=== PATIENT | female | born 1990 | race Asian ===

== ENCOUNTER 2022-09-18 16:50 | Outpatient (CLI) | payer SELFPAY ==
[~2022-09-18] VITALS: Ht 162.6 cm; Wt 68.6 kg
[2022-09-18 17:15] VITALS: BP 120/74
--- NOTE | 2022-09-19 09:55 | Physician Query-Final Dx ---
ROME09/19/22 0955: Clinic Account Progress/Dx Physician Query: Please give diagnosis Please include # weeks gestation Date of Service Sep 18, 2022 at 16:50 ANANDA JOYCE MD 09/19/22 1841: Clinic Account Progress/Dx DIAGNOSIS: Diagnosis Round ligament pain in third trimester 37 weeks gestation ,OctSep 19, 2022 09:55 ANANDA JOYCE MD Sep 19, 2022 18:41
== END 2022-09-18 18:15 ==
LOC: LDRP 16:50 → WSo 16:50
PROVIDERS: ATTEND Family Medicine
DX: O26.893 Other specified pregnancy related conditions, third trimester (principal); R10.2 Pelvic and perineal pain; Z3A.37 37 weeks gestation of pregnancy
CPT/HCPCS: 99213

== ENCOUNTER 2022-09-26 14:46 | Inpatient (IN) | payer SELFPAY ==
[~2022-09-26] VITALS: Ht 162.6 cm; Wt 70.1 kg
[2022-09-26] VITALS (13 sets, daily range): BP systolic 115–136; BP diastolic 70–90
--- NOTE | 2022-09-26 16:21 | Diagnostic Imaging Report ---
INDICATION: Threatened miscarriage. EXAMINATION: Limited OB ultrasound. FINDINGS: There is a single living intrauterine in cephalic presentation. Placenta is anterior, not low. There is no abruption or previa. Amniotic fluid volume appeared normal. Cervical length is 4.7 cm. heart rate was 152 BPM. IMPRESSION: Unremarkable limited OB ultrasound. Dictated by: Dictated on workstation # [id number]
[2022-09-26 18:41] LABS: BASOPHILS % (AUTO) 0 % (0-10); EOSINOPHILS # (AUTO) 0.1 10^3/uL (0.0-0.3); EOSINOPHILS % (AUTO) 1 % (0-10); HEMATOCRIT 36 % (35-52); HEMOGLOBIN 11.5 g/dL (11.5-16.0); LYMPHOCYTES # (AUTO) 1.6 10^3/uL (1.0-4.0); LYMPHOCYTES % (AUTO) 21 % (12-44); MEAN CORPUSCULAR HEMOGLOBIN 27 pg (25-34); MEAN CORPUSCULAR HGB CONC 32 g/dL (32-36); MEAN CORPUSCULAR VOLUME 85 fL (80-99); MONOCYTES # (AUTO) 0.4 10^3/uL (0.0-1.0); MONOCYTES % (AUTO) 6 % (0-12); NEUTROPHILS # (AUTO) 5.5 10^3/uL (1.8-7.8); NEUTROPHILS % (AUTO) 71 % (42-75); PLATELET COUNT 229 10^3/uL (130-400); WHITE BLOOD COUNT 7.8 10^3/uL (4.3-11.0)
[2022-09-26 18:47] LABS: ALBUMIN 3.5 GM/DL (3.2-4.5)
[2022-09-26 18:49] LABS: CALCIUM 9.2 MG/DL (8.5-10.1)
[2022-09-26 18:50] LABS: TOTAL PROTEIN 7.5 GM/DL (6.4-8.2)
[2022-09-26 18:52] LABS: BILIRUBIN,TOTAL 0.2 MG/DL (0.1-1.0)
[2022-09-26 18:53] LABS: CREATININE SERUM 0.61 MG/DL (0.60-1.30)
[2022-09-26 18:56] LABS: URIC ACID 1.6 MG/DL (2.6-7.2)
[2022-09-26] MEDS: D5 LR IV SOLUTION 1,000 ML IV SCH (19:33)
--- NOTE | 2022-09-26 20:42 | History & Physical-OB/GYN ---
DUSTIN NUGENT 09/26/222041: OB - Chief Complaint & HPI Date/Time Date of Admission: Date of Admission: September 26, 2022 Date seen by a Provider: Sep 26, 2022 Time Seen by a Provider: 08:15 Chief Complaint/History OB-Reason for Admission/Chief: Obstetrical Complication (bleeding) Hx : 1 Hx Para: 0 Expected Date of Delivery: Oct 08, 2022 Gestational Age in Weeks: 38 Gestational Age in Days: 2 Indication for induction: medical complication (vaginal bleeding) Allergies and Home Medications Allergies Coded Allergies: No Known Drug Allergies (Unverified , 09/26/22) Patient Home Medication List Betamethasone Dipropionate (Betamethasone Dipropionate) 0.05 % Cream..g., 15 GM TP BID, (Reported) Entered as Reported by: ANANDA JOYCE on 09/27/22525 Last Action: Reviewed Cetirizine HCl (Cetirizine HCl) 10 Mg Tablet, 10 MG PO DAILY, (Reported) Entered as Reported by: ANANDA JOYCE on 09/27/22518 Last Action: Reviewed Famotidine (Acid Receivable Manager (FAMOTIDINE)) 20 Mg Tablet, 20 MG PO DAILY, (Reported) Entered as Reported by: ANANDA JOYCE on 09/27/22518 Last Action: Reviewed Mupirocin (Mupirocin) 2 % Oin.pf.lalito, 1 GM TP TID, (Reported) Entered as Reported by: ANANDA JOYCE on 09/27/22525 Last Action: Reviewed OB - History Hx of Present Care: Yes Ultrasounds: Other (See below for details.) Abnormal Ultrasound Findings: survey at 22w3d was limited without obvious abnormality but US did show possible borderline low position of placenta. Follow up US at 26w5d showed normal structures and grade 1 anteriorly located placenta. Obstetrical Complications: Other (suspected prurigo of ) Medical Complications: None Information Induced Hypertension: No Maternal Gestational Diabetes: No Hemorrhage: No Obstetrical History Hx : 1 Hx Para: 0 Hx Termination: No Hx Total # of Abortions (Spona: 0 Hx Multiple Gestation: No Hx Ectopic : No Hx Stillbirth: No Hx Complication: No Hx Induced Hypertens: No Hx Maternal Gestational Diabet: No Hx Hemorrhage: No Delivery History Hx Dystocia: No Hx Forceps Assisted Delivery: No Hx Vacuum Extraction Assisted: No Hx Placenta Abnormality: No Hx Distress: No Hx Large For Gestational Age I: No Hx Small for Gestational Age I: No Hx Section: No Hx Vaginal Delivery Post C-Sec: No Hx Blood Disorders: No Adverse Rxn to Tranfusion: No Patient Past Medical History PCOS Allergic rhinitis Social History/Family History Alcohol Use: Denies Use Recreational Drug Use: No Smoking Cessation: Never smoker 2nd Hand Smoke Exposure: No Immunizations Influenza Vaccine Up-to-Date: Yes; Up-to-Date Tetanus Booster (TDap): Less than 5yrs Rubella: immune RPR/VDRL: Negative GBS Status: Negative HBsAG: Negative OB - Admission Exam Physical Exam Vitals: Vital Signs 09/26/22 09/26/22 15:16 18:03 Temp 36.8 Pulse 98 Resp 20 B/P (MAP) 136/90 (105) Pulse Ox 98 O2 Delivery Room Air Heart: Rhythm Normal Lungs: Clear Abdomen: Gravid (Manual exam reveals cephalic presentation, estimation of weight 3200 grams.) Extremities: Normal Cervical Dilatation: other (3.5) Effacement: Other (80%) Station: -2 Membranes: Intact Heart Rate: 140's Accelerations: Accelerations Present Decelerations: No Decelerations Short Term Variability: Present 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: Average (6-25) Contractions on Admission: < 5 Minutes Apart Date/Time Contractions Began;: 09/23/2022 1430 Frequency of Contractions: 1-2/10 minutes Labs Laboratory Tests Test 09/26/22 18:20 Range/Units White Blood Count 7.8 4.3-11.0 10^3/uL Red Blood Count 4.25 3.80-5.11 10^6/uL Hemoglobin 11.5 11.5-16.0 g/dL Hematocrit 36 35-52 % Mean Corpuscular Volume 85 80-99 fL Mean Corpuscular Hemoglobin 27 25-34 pg Mean Corpuscular Hemoglobin Concent 32 32-36 g/dL Red Cell Distribution Width 15.3 H 10.0-14.5 % Platelet Count 229 130-400 10^3/uL Mean Platelet Volume 11.0 9.0-12.2 fL Immature Granulocyte % (Auto) 1 % Neutrophils (%) (Auto) 71 42-75 % Lymphocytes (%) (Auto) 21 12-44 % Monocytes (%) (Auto) 6 0-12 % Eosinophils (%) (Auto) 1 0-10 % Basophils (%) (Auto) 0 0-10 % Neutrophils # (Auto) 5.5 1.8-7.8 10^3/uL Lymphocytes # (Auto) 1.6 1.0-4.0 10^3/uL Monocytes # (Auto) 0.4 0.0-1.0 10^3/uL Eosinophils # (Auto) 0.1 0.0-0.3 10^3/uL Basophils # (Auto) 0.0 0.0-0.1 10^3/uL Immature Granulocyte # (Auto) 0.1 0.0-0.1 10^3/uL Sodium Level 136 135-145 MMOL/L Potassium Level 4.0 3.6-5.0 MMOL/L Chloride Level 106 98-107 MMOL/L Carbon Dioxide Level 17 L 21-32 MMOL/L Anion Gap 13 5-14 MMOL/L Blood Urea Nitrogen 11 7-18 MG/DL Creatinine 0.61 0.60-1.30 MG/DL Estimat Glomerular Filtration Rate 123 BUN/Creatinine Ratio 18 Glucose Level 90 70-105 MG/DL Uric Acid 1.6 L 2.6-7.2 MG/DL Calcium Level 9.2 8.5-10.1 MG/DL Corrected Calcium 9.6 8.5-10.1 MG/DL Total Bilirubin 0.2 0.1-1.0 MG/DL Aspartate Amino Transf (AST/SGOT) 18 5-34 U/L Alanine Aminotransferase (ALT/SGPT) 10 0-55 U/L Alkaline Phosphatase 224 H 40-136 U/L Total Protein 7.5 6.4-8.2 GM/DL Albumin 3.5 3.2-4.5 GM/DL OB - Assessment/Plan/Diagnosis Assessment Assessment: vaginal bleeding Admission Dx Vaginal bleeding Admission Status: Inpatient Order (span 2 midnights) Reason for Inpatient Admission: Vaginal bleeding, induction of labor Plan Plan: Induction Induction Method: per Pitocin Protocol Problems: (1) Vaginal bleeding during Assessment & Plan: Patient had active bright red vaginal bleeding after cervix check in clinic. She had not had bleeding prior and was not having pain. She had some sporadic contractions before presentation to the clinic. Cervix was dilated to 3cm, effaced 25%. She was sent to the hospital for observation and continuous monitoring was initiated. She was found to be having contractions every 3- 5 minutes which progressed to every 2 minutes. heart tones at that time showed baseline 140 with minimal variability, no acceleration or decelerations. Fluids were started and contractions spaced out to every 5-6 minutes with heart tones recovering to baseline 140 with moderate variability, accelerations present, no decelerations. Patient had bleeding again after cervix check in the hospital. Repeat US ordered to assess for causes of bleeding, did not show evidence of placental abruption or previa, placenta was not low. Her cervix is 3.5cm, 80%, -2 at this time. She is now having pain only with contractions. No active bleeding. Discussed the situation with the patient and FOB and they would like to proceed with induction via pitocin protocol. Patient desires epidural. ANANDA JOYCE MD 09/27/22515: Allergies and Home Medications Allergies Coded Allergies: No Known Drug Allergies (Unverified , 09/26/22) Patient Home Medication List Home Medication List Reviewed: Yes Betamethasone Dipropionate (Betamethasone Dipropionate) 0.05 % Cream..g., 15 GM TP BID, (Reported) Entered as Reported by: ANANDA JOYCE on 09/27/22525 Last Action: Reviewed Cetirizine HCl (Cetirizine HCl) 10 Mg Tablet, 10 MG PO DAILY, (Reported) Entered as Reported by: ANANDA JOYCE on 09/27/22518 Last Action: Reviewed Famotidine (Acid Receivable Manager (FAMOTIDINE)) 20 Mg Tablet, 20 MG PO DAILY, (Reported) Entered as Reported by: ANANDA JOYCE on 09/27/22518 Last Action: Reviewed Mupirocin (Mupirocin) 2 % Oin.pf.lalito, 1 GM TP TID, (Reported) Entered as Reported by: ANANDA JOYCE on 09/27/22525 Last Action: Reviewed OB - Assessment/Plan/Diagnosis Plan Problems: (1) Vaginal bleeding during (2) Placental abruption Assessment & Plan: Given recurrent bright red bleeding of small to moderate amount and frequent contractions, suspect partial placental abruption and therefore recommended augmentation of her early labor. Qualifiers: Qualified Codes: O45.93 - Premature separation of placenta, unspecified, third trimester Supervisory-Addendum Brief Verification & Attestation Participated in pt care: history, MDM, physical Personally performed: exam, history, MDM, supervision of care Care discussed with: Medical Student Procedures: n/a I personally saw and examined patient and did my own history which confirmed that documented by the medical student. See my assessment and plan. DUSTIN NUGENT Sep 26, 2022 20:42 ANANDA JOYCE MD Sep 27, 2022 05:16
[2022-09-26] MEDS ORDERED: MINERAL OIL 30 ML UDC TOP PRN (20:45)
[2022-09-26] MEDS ORDERED: OXYTOCIN PRE-MIX DRIP 500 ML IV SCH (20:45)
[2022-09-26] MEDS ORDERED: D5 LR IV SOLUTION 1,000 ML IV SCH (20:45)
[2022-09-26] MEDS ORDERED: OXYTOCIN PRE-MIX DRIP 500 ML IV ONE (21:16)
[2022-09-26] MEDS ORDERED: CATHETER FLUSH 10 ML SYR IV SCH (22:00)
[2022-09-27] VITALS (46 sets, daily range): BP systolic 11–156; BP diastolic 53–87
[2022-09-27] MEDS ORDERED: fentaNYL 2 mcg/ml BUPIVA 0.125 100 ML ONE (01:11)
[2022-09-27] MEDS ORDERED: fentaNYL INJ 100 MCG/2 ML AMP ONE (01:49)
[2022-09-27] MEDS ORDERED: BUPIVACAINE 0.25% 30 ML (SENSORCAINE) VIAL ONE (01:49)
[2022-09-27] MEDS ORDERED: fentaNYL INJ 100 MCG/2 ML AMP INJ ONE (02:30)
[2022-09-27] MEDS ORDERED: LACTATED RINGERS 1,000 ML IV ONE ×2 (02:30)
[2022-09-27] MEDS ORDERED: ONDANSETRON 4 MG/2 ML (SDV) Z0FRAN IV PRN (02:30)
[2022-09-27] MEDS ORDERED: fentaNYL 2 mcg/ml BUPIVA 0.125 100 ML EPI SCH (02:30)
[2022-09-27] MEDS ORDERED: NALOXONE 0.4 MG/ML 1 ML (NARCAN) VIAL IV PRN (02:30)
[2022-09-27] MEDS: D5 LR IV SOLUTION 1,000 ML IV SCH (03:22)
[2022-09-27] MEDS ORDERED: FAMO20TA3 PO (05:19)
[2022-09-27] MEDS ORDERED: CETI10TA17 PO (05:19)
[2022-09-27] MEDS ORDERED: MUPI1OIN6 TP (05:26)
[2022-09-27] MEDS ORDERED: BETA15CR4 TP (05:26)
[2022-09-27] MEDS: OXYTOCIN PRE-MIX DRIP 500 ML IV SCH ×2 (10:38→12:35)
--- NOTE | 2022-09-27 10:38 | OB Labor & Delivery Record ---
ANA CRISTINA SORIA 09/27/22 1038: Vag Delivery Note Vag Delivery Note Date of Delivery: 09/27/22 Preoperative Diagnosis: Ethan Tapia is a (32 y/o /Para 1 / 0, Gestational Age (wks)38with 2 days Postoperative Diagnosis: Same Surgeon: Ananda Joyce MD Receiving Checker: Ana Cristina Soria Anesthesia: epidural Delivery Type: vaginal delivery Findings: Viable male infant, apgars 8,9, weight 2948 grams Lacerations: 2nd degree midline Intact placenta with 3 vessel cord. No nuchal cord, body cord or shoulder dystocia Estimated Blood Loss: 450 ml Complications: None Condition: Stable Description of Procedure: The patient is a 32 year old female who presented with vaginal bleeding and contractions. She was admitted and informed consent was obtained. Her labor course was remarkable for vaginal bleeding She progressed to complete dilatation and began to push. She was then set up for delivery. The 's head was delivered atraumatically in the JUAREZ position. The shoulders and remainder of the infant's body were then delivered without difficulty. Upon delivery, the was placed on mothers abdomen and the mouth and nares were bulb suctioned. The cord was doubly clamped and cut and the was handed off to the pediatric staff. An intact placenta with 3-vessel cord delivered via Lorraine and there was found to be minimal bleeding.~ Vigorous fundal massage was performed and the fundus was found to be firm. IV oxytocin was given. Examination of the vagina and perineum revealed a midline 2nd degree laceration repaired in the usual fashion with 3-0 vicryl suture. Following the repair, sponge, instrument and needle counts were correct. Mom and baby were both in stable condition in the labor suite. Vitals - Labs Vital Signs - I&O Vital Signs Date Time Temp Pulse Resp B/P (MAP) Pulse Ox O2 Delivery O2 Flow Rate FiO2 09/27/22 09:00 113 22 116/68 (84) 09/27/22 08:50 36.6 09/27/22 08:10 37.0 102 20 101/59 (73) 09/27/22 07:15 37.0 09/27/22 07:00 108 18 122/74 (90) Room Air 09/27/22 06:30 117 18 139/63 (88) 98 Room Air 09/27/22 06:15 93 18 115/54 (74) 98 Room Air 09/27/22 06:00 112 18 129/79 (96) 100 Room Air 09/27/22 05:45 110 18 126/86 (99) 100 Room Air 09/27/22 05:30 95 18 130/87 (101) 99 Room Air 09/27/22 05:15 93 18 124/77 (93) 99 Room Air 09/27/22 05:00 105 18 124/82 (96) 99 Room Air 09/27/22 04:45 90 18 119/82 (94) 99 Room Air 09/27/22 04:30 76 18 119/69 (86) 97 Room Air 09/27/22 04:15 87 18 121/72 (88) 98 Room Air 09/27/22 04:00 80 18 117/69 (85) 98 Room Air 09/27/22 03:45 78 18 112/65 (81) 98 Room Air 09/27/22 03:30 78 18 123/81 (95) 98 Room Air 09/27/22 03:15 83 18 128/79 (95) 98 Room Air 09/27/22 03:00 Room Air 09/27/22 02:50 98 18 115/69 (84) 98 Room Air 09/27/22 02:45 90 18 116/69 (85) 97 Room Air 09/27/22 02:40 80 18 119/67 (84) 97 Room Air 09/27/22 02:35 86 98 Room Air 09/27/22 02:30 92 18 119/65 (83) 97 Room Air 09/27/22 02:25 95 18 115/60 (78) 98 Room Air 09/27/22 02:20 96 18 115/62 (79) 98 Room Air 09/27/22 02:15 36.5 94 18 123/76 (92) Room Air 09/27/22 02:10 99 18 118/72 (87) 98 Room Air 09/27/22 02:05 89 18 131/80 (97) 98 Room Air 09/27/22 02:00 107 18 136/85 (102) 98 Room Air 09/27/22 01:45 09/27/22 01:30 88 18 130/77 (94) Room Air 09/27/22 01:15 89 18 132/68 (89) Room Air 09/27/22 01:00 84 18 156/77 (103) Room Air 09/27/22 00:45 86 18 123/72 (89) Room Air 09/27/22 00:30 77 18 130/73 (92) Room Air 09/27/22 00:15 78 18 120/75 (90) Room Air 09/27/22 00:00 72 18 120/75 (90) Room Air 09/26/22 23:45 76 18 118/74 (89) Room Air 09/26/22 23:30 78 18 115/76 (89) Room Air 09/26/22 23:15 85 18 120/77 (91) Room Air 09/26/22 23:00 86 18 117/75 (89) Room Air 09/26/22 22:45 89 18 122/78 (93) Room Air 09/26/22 22:30 94 18 132/70 (90) Room Air 09/26/22 22:15 85 18 127/71 (89) Room Air 09/26/22 22:00 85 18 128/73 (91) Room Air 09/26/22 21:45 85 18 124/80 (95) Room Air 09/26/22 21:30 36.2 90 18 124/81 (95) Room Air 09/26/22 20:30 36.6 98 18 98 Room Air 09/26/22 18:03 98 20 136/90 (105) 98 Room Air 09/26/22 15:16 36.8 82 20 123/82 98 Room Air Labs Laboratory Tests 09/26/22 18:20: White Blood Count 7.8, Red Blood Count 4.25, Hemoglobin 11.5, Hematocrit 36, Mean Corpuscular Volume 85, Mean Corpuscular Hemoglobin 27, Mean Corpuscular Hemoglobin Concent 32, Red Cell Distribution Width 15.3H, Platelet Count 229, Mean Platelet Volume 11.0, Immature Granulocyte % (Auto) 1, Neutrophils (%) (Auto) 71, Lymphocytes (%) (Auto) 21, Monocytes (%) (Auto) 6, Eosinophils (%) (Auto) 1, Basophils (%) (Auto) 0, Neutrophils # (Auto) 5.5, Lymphocytes # (Auto) 1.6, Monocytes # (Auto) 0.4, Eosinophils # (Auto) 0.1, Basophils # (Auto) 0.0, Immature Granulocyte # (Auto) 0.1, Sodium Level 136, Potassium Level 4.0, Chloride Level 106, Carbon Dioxide Level 17L, Anion Gap 13, Blood Urea Nitrogen 11, Creatinine 0.61, Estimat Glomerular Filtration Rate 123, BUN/Creatinine Ratio 18, Glucose Level 90, Uric Acid 1.6L, Calcium Level 9.2, Corrected Calcium 9.6, Total Bilirubin 0.2, Aspartate Amino Transf (AST/SGOT) 18, Alanine Aminotransferase (ALT/SGPT) 10, Alkaline Phosphatase 224H, Total Protein 7.5, Albumin 3.5 09/26/22 20:20: Urine Protein 18H, Urine Creatinine 36, Urine Protein/Creatinine Ratio 0.50 ANANDA JOYCE MD 09/27/22 1316: Supervisory-Addendum Brief Supervisory Addendum Verification and Attestation of Medical Student E/M Service A medical student performed and documented this service in my presence. I reviewed and verified all information documented by the medical student and made modifications to such information, when appropriate. I personally performed the physical exam and medical decision making. Ananda Joyce, Sep 27, 2022,13:16 ANA CRISTINA SORIA Sep 27, 2022 10:38 ANANDA JOYCE MD Sep 27, 2022 13:16
[2022-09-27] MEDS ORDERED: TETANUS,DIPTH,PERTUSS P/F (BOOSTRIX) 0.5 ML VIAL IM ONE (10:45)
[2022-09-27] MEDS ORDERED: BENZOCAINE/MENTHOL (DERMOPLAST) 56 ML CAN TP PRN (10:45)
[2022-09-27] MEDS ORDERED: CATHETER FLUSH 10 ML SYR IV SCH (14:00)
[2022-09-27] MEDS: IBUPROFEN 600 MG (MOTRIN) TAB PO PRN ×2 (14:08→21:19)
[2022-09-27] MEDS: WITCH HAZEL(TUCKS) 40 EA JAR TOP PRN (14:09)
--- NOTE | 2022-09-27 14:59 | Anesthesia-Regional Post-Op ---
Regional Patient Condition Mental Status: Alert, Oriented x3 Circulation: Same as Pre-Op Headache: Absent Sensation: Full Recovery Motor Block: Absent Post Op Complications Complications None Follow Up Care/Instructions Patient Instructions None needed. Anesthesia/Patient Condition Patient is doing well, no complaints, stable vital signs, no apparent adverse anesthesia problems. No complications reported per nursing. NETTA MEDELLIN CRNA Sep 27, 2022 14:59
[2022-09-27] MEDS: DOCUSATE SODIUM 100 MG (COLACE) CAP PO SCH (21:19)
[2022-09-28] VITALS: BP 110/66
[2022-09-28 03:10] VITALS: BP 114/65
[2022-09-28] MEDS: IBUPROFEN 600 MG (MOTRIN) TAB PO PRN ×4 (03:10→22:24)
[2022-09-28 06:46] LABS: BASOPHILS % (AUTO) 0 % (0-10); EOSINOPHILS # (AUTO) 0.1 10^3/uL (0.0-0.3); EOSINOPHILS % (AUTO) 1 % (0-10); HEMATOCRIT 22 % (35-52); LYMPHOCYTES # (AUTO) 1.9 10^3/uL (1.0-4.0); LYMPHOCYTES % (AUTO) 15 % (12-44); MEAN CORPUSCULAR HEMOGLOBIN 27 pg (25-34); MEAN CORPUSCULAR HGB CONC 32 g/dL (32-36); MEAN CORPUSCULAR VOLUME 85 fL (80-99); MEAN PLATELET VOLUME 10.7 fL (9.0-12.2); MONOCYTES # (AUTO) 0.7 10^3/uL (0.0-1.0); MONOCYTES % (AUTO) 5 % (0-12); NEUTROPHILS # (AUTO) 10.4 10^3/uL (1.8-7.8); NEUTROPHILS % (AUTO) 79 % (42-75); PLATELET COUNT 175 10^3/uL (130-400); WHITE BLOOD COUNT 13.2 10^3/uL (4.3-11.0)
[2022-09-28 06:49] LABS: HEMOGLOBIN 6.9 g/dL (11.5-16.0)
[2022-09-28 10:00] VITALS: BP 115/63
[2022-09-28] MEDS: FERROUS SULF 325 MG (IRON) TAB PO SCH ×2 (10:11→17:42)
[2022-09-28] MEDS: DOCUSATE SODIUM 100 MG (COLACE) CAP PO SCH ×2 (10:11→22:24)
[2022-09-28 13:00] VITALS: BP 111/55
[2022-09-28] MEDS ORDERED: IRON SUCROSE 200 MG/10 ML (VENOFER) VIAL IV NR (13:15)
--- NOTE | 2022-09-28 13:21 | Postpartum Progress Note ---
Note Note Day # 1 Subjective: Patient is without complaints. Ambulating, voiding. Tolerating a regular diet without nausea or vomiting. Normal lochia. Pain is well controlled with oral pain medications. States that she is having some dizziness when getting up but not everytime. Desires to breast feed Objective: Physical Exam: General - Alert and oriented, no apparent distress Abdomen - Soft, appropriately tender to palpation, non-distended, fundus firm at umbilicus Extremities - no edema, negative Joyce's bilaterally Assessment: 32 yo G1 now P1 @ 38.2 wga, post- day # 1, status post spontaneous vaginal delivery. Recovering well, hemodynamically stable Anemia of acute blood loss Plan: Routine care. Encourage breast feeding. Encourage ambulation. Ferrous sulfate supplementation, Venofer ordered x 1 Plan for discharge tomorrow with lilly Bray Vitals - Labs Vital Signs - I&O Vital Signs Date Time Temp Pulse Resp B/P (MAP) Pulse Ox O2 Delivery O2 Flow Rate FiO2 09/28/22 10:00 36.7 102 18 115/63 (80) 98 Room Air 09/28/22 03:10 36.1 91 18 114/65 (81) 97 Room Air 09/28/22 00:00 36.2 98 18 110/66 (81) 96 Room Air 09/27/22 21:19 36.2 96 18 110/64 (79) 97 Room Air 09/27/22 16:40 36.7 107 18 107/60 (76) 96 Room Air I & O 09/28/22 07:00 Intake Total 2100 ml Balance 2100 ml Labs Laboratory Tests 09/28/22 06:10: White Blood Count 13.2H, Red Blood Count 2.54L, Hemoglobin 6.9#*L, Hematocrit 22L, Mean Corpuscular Volume 85, Mean Corpuscular Hemoglobin 27, Mean Corpuscular Hemoglobin Concent 32, Red Cell Distribution Width 15.6H, Platelet Count 175, Mean Platelet Volume 10.7, Immature Granulocyte % (Auto) 1, Neutrophils (%) (Auto) 79H, Lymphocytes (%) (Auto) 15, Monocytes (%) (Auto) 5, Eosinophils (%) (Auto) 1, Basophils (%) (Auto) 0, Neutrophils # (Auto) 10.4H, Lymphocytes # (Auto) 1.9, Monocytes # (Auto) 0.7, Eosinophils # (Auto) 0.1, Basophils # (Auto) 0.0, Immature Granulocyte # (Auto) 0.1 HAIDER REYES MD Sep 28, 2022 13:21
[2022-09-28 16:13] VITALS: BP 110/65
[2022-09-28] MEDS: WITCH HAZEL(TUCKS) 40 EA JAR TOP PRN (16:56)
[2022-09-28 20:10] VITALS: BP 109/60
[2022-09-29] MEDS: IBUPROFEN 600 MG (MOTRIN) TAB PO PRN ×2 (03:19→09:42)
[2022-09-29 03:23] VITALS: BP 100/53
[2022-09-29 06:11] LABS: BASOPHILS % (AUTO) 0 % (0-10); EOSINOPHILS # (AUTO) 0.2 10^3/uL (0.0-0.3); EOSINOPHILS % (AUTO) 2 % (0-10); HEMATOCRIT 21 % (35-52); LYMPHOCYTES # (AUTO) 1.9 10^3/uL (1.0-4.0); LYMPHOCYTES % (AUTO) 15 % (12-44); MEAN CORPUSCULAR HEMOGLOBIN 27 pg (25-34); MEAN CORPUSCULAR HGB CONC 32 g/dL (32-36); MEAN CORPUSCULAR VOLUME 86 fL (80-99); MEAN PLATELET VOLUME 10.3 fL (9.0-12.2); MONOCYTES # (AUTO) 0.6 10^3/uL (0.0-1.0); MONOCYTES % (AUTO) 5 % (0-12); NEUTROPHILS # (AUTO) 9.4 10^3/uL (1.8-7.8); NEUTROPHILS % (AUTO) 77 % (42-75); PLATELET COUNT 202 10^3/uL (130-400); WHITE BLOOD COUNT 12.2 10^3/uL (4.3-11.0)
[2022-09-29 06:20] LABS: HEMOGLOBIN 6.6 g/dL (11.5-16.0)
--- NOTE | 2022-09-29 08:22 | Discharge Summary ---
Diagnosis/Chief Complaint Date of Admission Sep 26, 2022 at 20:35 Date of Discharge 09/29/22 Admission Diagnosis Admission Diagnosis Third Trimester 38 week gestation Anemia of acute blood loss Discharge Diagnosis See Above Discharge Summary-Simple/Stand Procedures Uncomplicated Discharge Physical Examination Allergies: Coded Allergies: No Known Drug Allergies (Unverified , 09/26/22) Vitals & I&Os Vital Sign - Last 12Hours Date Time Temp Pulse Resp B/P (MAP) Pulse Ox O2 Delivery O2 Flow Rate FiO2 09/29/22 03:23 36.7 91 18 100/53 (69) 98 Room Air General Appearance: Alert, Oriented X3 Respiratory: Clear to Auscultation Cardiovascular: Regular Rate, No Murmurs Abdominal: Normal Bowel Sounds, Soft, No Tenderness, Other (Fundus firm and below umbilicus) Extremities: No Edema, No Tenderness/Swelling Neuro: Normal Speech Psych/Mental Status: Mental Status NL, Mood NL Hospital Course See final discharge diagnosis. Discussion & Recommendations 32 yo G1 now P1 mother delivered term male via uncomplicated @ 38 weeks Discharge Condition at discharge stable Instructions to patient/family Please see electronic discharge instructions given to patient. Discharge Medications Reviewed and agree with Discharge Medication list on patient's Discharge Ins truction sheet Copy Copies To 1: ANANDA JOYCE MD, HOLLY R MD Sep 29, 2022 08:22
[2022-09-29] MEDS ORDERED: IBUP-844 PO (08:23)
[2022-09-29] MEDS ORDERED: DOCU100C37 PO (08:23)
[2022-09-29] MEDS ORDERED: FERR325T24 PO (08:23)
--- NOTE | 2022-09-29 08:40 | Discharge Summary ---
Discharge Inst-Women[facility] Serv Depart Medications New, Converted or Re-Newed RX: Transmitted to Pharmacy New Medications: Docusate Sodium (Docusate Sodium) 100 Mg Capsule 100 MG PO BID, #28 CAP Ferrous Sulfate (Ferosul) 325 Mg (65 Mg Iron) Tablet 325 MG PO BID WITH MEALS, #60 TAB Ibuprofen (Ibu) 600 Mg Tablet 600 MG PO Q6HR PRN for PAIN-MILD (1-4), #90 TAB Discontinued Medications: Betamethasone Dipropionate (Betamethasone Dipropionate) 0.05 % Cream..g. 15 GM TP BID, EA Cetirizine HCl (Cetirizine HCl) 10 Mg Tablet 10 MG PO DAILY, TAB Famotidine (Acid Training Generalist (FAMOTIDINE)) 20 Mg Tablet 20 MG PO DAILY, TAB Mupirocin (Mupirocin) 2 % Oin.pf.lalito 1 GM TP TID, TUBE Follow Up/Instructions Goal/Follow Up: F.u 6 week with Asa Activity Activity: Activity as Tolerated Driving Instructions: You May Drive Nothing Inside Vagina: No Douching, No [place], No Tampons Diet Discharge Diet: No Restrictions Symptoms to Report to : Bleeding Excessive, Fever Over 101 Degrees F, Dizziness/Fainting, Nausea/Vomiting, Shortness of Breath Copies To 1: ANANDA JOYCE MD, HOLLY R MD Sep 29, 2022 08:40
[2022-09-29 09:30] VITALS: BP 116/70
[2022-09-29] MEDS: DOCUSATE SODIUM 100 MG (COLACE) CAP PO SCH (09:42)
[2022-09-29] MEDS: FERROUS SULF 325 MG (IRON) TAB PO SCH (09:42)
[2022-09-29 10:30] VITALS: BP 116/70
== END 2022-09-29 10:30 | disposition home or self-care (01) | DRG 806 ==
LOC: WSo 14:46 → LDRP 14:46 → WSo 20:33 → LDRP 20:33 → UNDOADMIN 20:35 → LDRP 20:35 → UNDODISIN 09-29 10:30 → EDSTATUS 09-30 10:54
PROVIDERS: ADMIT Family Medicine; ATTEND Family Medicine
PROC: 10E0XZZ Delivery of Products of Conception, External Approach (ICD-10-PCS; principal; 2022-09-27)
PROC: 0KQM0ZZ Repair Perineum Muscle, Open Approach (ICD-10-PCS; 2022-09-27)
DX: O45.93 Premature separation of placenta, unspecified, third trimester (principal); D62 Acute posthemorrhagic anemia; Z37.0 Single live birth; Z3A.38 38 weeks gestation of pregnancy; O70.1 Second degree perineal laceration during delivery; O90.81 Anemia of the puerperium
CPT/HCPCS: 36415; 76815; 80053; 82570; 84156; 84550; 85025; 86780; 86850; 86900; 86901

== ENCOUNTER 2022-10-09 15:13 | Emergency (ER) | payer SELFPAY ==
[~2022-10-09] VITALS: Ht 162.5 cm; Wt 62.5 kg
[~2022-10-09 15:13] MED LIST: BETA15CR4 TP; CETI10TA17 PO; DOCU100C37 PO; FAMO20TA3 PO; FERR325T24 PO; IBUP-844 PO; MUPI1OIN6 TP
[2022-10-09 17:58] LABS: BASOPHILS % (AUTO) 0 % (0-10); EOSINOPHILS # (AUTO) 0.1 10^3/uL (0.0-0.3); EOSINOPHILS % (AUTO) 1 % (0-10); HEMATOCRIT 33 % (35-52); HEMOGLOBIN 9.9 g/dL (11.5-16.0); LYMPHOCYTES # (AUTO) 1.4 10^3/uL (1.0-4.0); LYMPHOCYTES % (AUTO) 16 % (12-44); MEAN CORPUSCULAR HEMOGLOBIN 27 pg (25-34); MEAN CORPUSCULAR HGB CONC 30 g/dL (32-36); MEAN CORPUSCULAR VOLUME 91 fL (80-99); MEAN PLATELET VOLUME 8.5 fL (9.0-12.2); MONOCYTES # (AUTO) 0.3 10^3/uL (0.0-1.0); MONOCYTES % (AUTO) 3 % (0-12); NEUTROPHILS # (AUTO) 6.9 10^3/uL (1.8-7.8); NEUTROPHILS % (AUTO) 79 % (42-75); PLATELET COUNT 407 10^3/uL (130-400); WHITE BLOOD COUNT 8.8 10^3/uL (4.3-11.0)
[2022-10-09 18:05] LABS: CALCIUM 9.3 MG/DL (8.5-10.1)
[2022-10-09 18:06] LABS: TOTAL PROTEIN 7.7 GM/DL (6.4-8.2)
[2022-10-09 18:08] LABS: BILIRUBIN,TOTAL 0.2 MG/DL (0.1-1.0)
[2022-10-09 18:10] LABS: CREATININE SERUM 0.7 MG/DL (0.60-1.30)
[2022-10-09 18:40] VITALS: BP 122/80
--- NOTE | 2022-10-09 18:46 | ED GU-Female ---
General Chief Complaint: - Reproductive Stated Complaint: VAGINAL BLEEDING Nursing Triage Note: PT AMB TO TRIAGE WITH COMPLAINT OF VAGINAL BLEEDING. STATES HAD A VAGINAL DELIVERY ON Sep. WAS SEEN YESTERDAY AT THE [facility] AND TOLD THERE WAS SOMETHING WRONG WITH HER SUTURES. DID NOT SEE PROVIDER WHO DELIVERED. STATES SHE IS FILLING A PAD EVERY 3-4 HOURS. AND HAS PASSED A FEW CLOTS. Source: patient Exam Limitations: no limitations (YESSENIA KENT APRN) History of Present Illness Date Seen by Provider: Oct 09, 2022 Time Seen by Provider: 18:29 Initial Comments This is a 40-year-old female who had a uncomplicated vaginal delivery September 27, 2022. At time of delivery she had a second-degree vaginal tear which was repaired with 3-0 Vicryl. States that she has had persistent discomfort since . She is having vaginal bleeding, states that she is going through thin pad every 4-5 hours. States that she changes her pad every time she urinates. She was evaluated at [facility] yesterday and told that her stitches were not visible but her repair had reopened. She would like site evaluated today. No fever, chills, dizziness, lightheadedness, vaginal discharge , dysuria, abdominal pain, nausea, vomiting. (YESSENIA KENT APRN) Allergies and Home Medications Allergies Coded Allergies: No Known Drug Allergies (Unverified , 09/26/22) Patient Home Medication List Home Medication List Reviewed: Yes (YESSENIA KENT APRN) Docusate Sodium (Docusate Sodium) 100 Mg Capsule, 100 MG PO BID Prescribed by: HAIDER REYES on 09/29/22822 Ferrous Sulfate (Ferosul) 325 Mg (65 Mg Iron) Tablet, 325 MG PO BID WITH MEALS Prescribed by: HAIDER REYES on 09/29/22822 Ibuprofen (Ibu) 600 Mg Tablet, 600 MG PO Q6HR PRN for PAIN-MILD (1-4) Prescribed by: HAIDER REYES on 09/29/22822 Review of Systems Review of Systems Constitutional: see HPI (YESSENIA KENT APRN) Past Rwapuhv-Wryqht-Mpygbm Hx Patient Social History Tobacco Use?: No Use of E-Cig and/or Vaping dev: No Substance use?: No Alcohol Use?: No Pt feels they are or have been: No (YESSENIA KENT APRN) Immunizations Up To Date Tetanus Booster (TDap): Less than 5yrs (YESSENIA KENT APRN) Past Medical History Adverse Reaction/Blood Tranf: No (YESSENIA KENT APRN) Physical Exam Vital Signs Vital Signs - First Documented 10/09/22 15:37 Pulse 104 Resp 16 B/P (MAP) 127/85 (99) Pulse Ox 98 O2 Delivery Room Air (KITA,QUINCY K DO) Vital Signs Capillary Refill : (YESSENIA KENT APRN) Height, Weight, BMI Height: '" Weight: lbs. oz. kg; 23.00 BMI Method: General Appearance: WD/WN, no apparent distress HEENT: PERRL/EOMI, normal ENT inspection, pharynx normal Neck: full range of motion, normal inspection Cardiovascular: regular rate, rhythm, no murmur Respiratory: lungs clear, normal breath sounds, no respiratory distress, no accessory muscle use Gastrointestinal: normal bowel sounds, non tender, soft Pelvic: normal external exam, vaginal bleeding, other (Able to visualize vicryl suture, appears to have re-opening of vaginal tear sustained from child , no profuse/active bleeding. No erythema or swelling to tissue. ) Extremities: normal range of motion Neurologic/Psychiatric: no motor/sensory deficits, alert, normal mood/affect, oriented x 3 Skin: normal color, warm/dry (YESSENIA KENT APRN) Progress/Results/Core Measures Suspected Sepsis SIRS Temperature: Pulse: 104 Respiratory Rate: 16 Laboratory Tests 10/09/22 17:45: White Blood Count 8.8 Blood Pressure 127 /85 Mean: 99 Laboratory Tests 10/09/22 17:45: Creatinine 0.70, Platelet Count 407H, Total Bilirubin 0.2 (YESSENIA KENT APRN) Results/Orders Lab Results Laboratory Tests Test 10/09/22 17:45 Range/Units White Blood Count 8.8 4.3-11.0 10^3/uL Red Blood Count 3.65 L 3.80-5.11 10^6/uL Hemoglobin 9.9 L 11.5-16.0 g/dL Hematocrit 33 L 35-52 % Mean Corpuscular Volume 91 80-99 fL Mean Corpuscular Hemoglobin 27 25-34 pg Mean Corpuscular Hemoglobin Concent 30 L 32-36 g/dL Red Cell Distribution Width 19.1 H 10.0-14.5 % Platelet Count 407 H 130-400 10^3/uL Mean Platelet Volume 8.5 L 9.0-12.2 fL Immature Granulocyte % (Auto) 1 % Neutrophils (%) (Auto) 79 H 42-75 % Lymphocytes (%) (Auto) 16 12-44 % Monocytes (%) (Auto) 3 0-12 % Eosinophils (%) (Auto) 1 0-10 % Basophils (%) (Auto) 0 0-10 % Neutrophils # (Auto) 6.9 1.8-7.8 10^3/uL Lymphocytes # (Auto) 1.4 1.0-4.0 10^3/uL Monocytes # (Auto) 0.3 0.0-1.0 10^3/uL Eosinophils # (Auto) 0.1 0.0-0.3 10^3/uL Basophils # (Auto) 0.0 0.0-0.1 10^3/uL Immature Granulocyte # (Auto) 0.1 0.0-0.1 10^3/uL Sodium Level 142 135-145 MMOL/L Potassium Level 4.0 3.6-5.0 MMOL/L Chloride Level 108 H 98-107 MMOL/L Carbon Dioxide Level 23 21-32 MMOL/L Anion Gap 11 5-14 MMOL/L Blood Urea Nitrogen 12 7-18 MG/DL Creatinine 0.70 0.60-1.30 MG/DL Estimat Glomerular Filtration Rate 119 BUN/Creatinine Ratio 17 Glucose Level 90 70-105 MG/DL Calcium Level 9.3 8.5-10.1 MG/DL Corrected Calcium 9.3 8.5-10.1 MG/DL Total Bilirubin 0.2 0.1-1.0 MG/DL Aspartate Amino Transf (AST/SGOT) 19 5-34 U/L Alanine Aminotransferase (ALT/SGPT) 19 0-55 U/L Alkaline Phosphatase 116 40-136 U/L Total Protein 7.7 6.4-8.2 GM/DL Albumin 4.0 3.2-4.5 GM/DL (ANNALISE EASTA K DO) Vital Signs/I&O 10/09/22 10/09/22 15:37 18:40 Pulse 104 84 Resp 16 16 B/P (MAP) 127/85 (99) 122/80 Pulse Ox 98 100 O2 Delivery Room Air Room Air (QUINCY EAST DO) Vital Signs/I&O Capillary Refill : (YESSENIA KENT MACHINE STRIPPER) Blood Pressure Mean: 99 Progress Note : Progress Note Patient examined no acute distress. Obtain basic labs, her hemoglobin is up to 9.9 today. States that she is "not bleeding much" she just wanted to have a site evaluated today as she was concerned with report from her OB office. Consulted with Dr. 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 Bray later this week or early next week. No acute inte rventions tonight. She has return to the ER if she has any new, concerning, worsening symptoms. Reviewed risk of infection and how to mitigate, verbalized understanding strict return precautions provided, she is agreeable with plan. No concerns voiced at time of discharge. (YESSENIA KENT MACHINE STRIPPER) Departure Communication (Admissions) Time/Spoke to Consulting Phy: 18:[address] Oconnor, no acute interventions at this time. Patient may require surgical intervention at a later date. We will have her follow-up with Dr. Bray later this week or early next week if possible. (YESSENIA KENT MACHINE STRIPPER) Impression Primary Impression: Vaginal tear from childbirth dehiscence Disposition: 01 HOME, SELF-CARE Condition: Stable Departure-Patient Inst. Decision time for Depature: 18:44 (YESSENIA KENT MACHINE STRIPPER) Referrals: NO,LOCAL PHYSICIAN (PCP/Family) Primary Care Physician Patient Instructions: Episiotomy Add. Discharge Instructions: Plan: 1. Follow-up with Dr. Bray later this week or early next week. 2. May use ice 20 minutes at a time for comfort. 3. Opening of your vaginal tear/episiotomy places you at higher risk for infection, you will need to keep site clean, use wash because to cleanse after using the restroom. If you have any vaginal discharge, foul odor, increased pain or fever you need to return to the ER. 4. Return to the ER for any new, concerning, worsening symptoms. All discharge instructions reviewed with patient and/or family. Voiced understanding. ATTENDING PHYSICIAN NOTE: I WAS PHYSICALLY PRESENT ER PHYSICIAN, BUT I WAS NOT INVOLVED IN ANY DECISION MAKING OR ANY CARE OF THIS PATIENT, AND I AM NOT COLLABORATING PHYSICIAN. (QUINCY EAST DO) YESSENIA KENT APRN Oct 09, 2022 18:45 QUINCY EAST DO Oct 09, 2022 21:26
== END 2022-10-09 18:40 | disposition home or self-care (01) ==
LOC: EDUNIT# 15:13 → ER 15:14
DX: O90.1 Disruption of perineal obstetric wound (principal)
CPT/HCPCS: 36415; 80053; 84703; 85025